=== PATIENT | male | born 1950 | race Hispanic/Latino ===

== ENCOUNTER → 2017-10-10 | Day surgery (SDC) | payer BC, MEDICARE ==
[2017-10-07 17:31] LABS: BASOPHILS # (AUTO) 0.1 (0.0-0.1); EOSINOPHILS # (AUTO) 0.4 (0.0-0.4); EOSINOPHILS % 3.1 % (0.0-6.0); HEMATOCRIT 44.9 % (38.2-49.6); LYMPHOCYTES # (AUTO) 3.8 (1.0-3.2); MEAN CORPUSCULAR HGB CONC 33.4 g/dL (31-35); MEAN CORPUSCULAR VOLUME 83.9 fL (81-99); MONOCYTES # (AUTO) 0.8 (0.2-0.8); NEUTROPHILS # (AUTO) 6.4 (2.1-6.9); NEUTROPHILS % 55.2 % (38.7-80.0); PLATELET COUNT 245 x10e3/uL (140-360); RED BLOOD COUNT 5.35 x10e6/uL (4.3-5.7); RED CELL DISTRIBUTION WIDTH 13.9 % (11.7-14.4)
[2017-10-07 17:44] LABS: BLOOD UREA NITROGEN 18 mg/dL (7-26); BUN/CREATININE RATIO 18 (6-25); CALCIUM 9.9 mg/dL (8.4-10.2); CARBON DIOXIDE 22 mmol/L (22-29); CHLORIDE 106 mmol/L (98-107); CREATININE, SERUM 1.01 mg/dL (0.72-1.25); EST GLOMERULAR FILTRATION RATE > 60 ML/MIN (60-); GLUCOSE 232 mg/dL (74-118); SODIUM 138 mmol/L (136-145)
--- NOTE | 2017-10-07 17:55 | Diagnostic Imaging Report ---
PROCEDURE: Frontal and lateral views of the chest. COMPARISON: Chest x-ray 07/25/2017. INDICATIONS: PRE-OP FINDINGS: Lines/tubes: None. Lungs: The lungs are well inflated and clear. Mild left lateral basilar atelectasis. There is no evidence of pneumonia or pulmonary edema. Pleura: There is no pleural effusion or pneumothorax. Heart and mediastinum: The heart and the mediastinum are normal. Bones: No acute bony abnormality. Degenerative changes in the thoracic spine. Surgical clips in the upper abdomen. IMPRESSION: No acute cardiopulmonary disease. Dictated by: Rashawn Cali M.D. on 10/07/2017 at 18:04 Electronically approved by: Rashawn Cali M.D. on 10/07/2017 at 18:04
[~2017-10-10] MED LIST: ASPIR 8181 MG PO; ATORVASTATIN CA20 MG PO; ATORVASTATIN CA40 MG PO; CELEBREX100 MG PO; CLOPIDOGREL75 MG PO; FENTANYL CITRATE/PF 100MCG/2 ML INJ ONE; JANUVIA100 MG PO; KRILL OIL500 MG; LIDOCAINE HCL 2% LOCAL INJ 5 ML SDV VIAL INJ ONE; LOSARTAN POTASS25 MG PO; METFORMIN HCL500 M1 PO; MIDAZOLAM HCL 2 MG/2 ML VIAL ONE; NORCO 5-325 TA1 EACH PO; NORVASC10 MG PO; OMEPRAZOLE20 M1 PO; PANTOPRAZOLE SO40 MG PO; PROPOFOL IV EMULSION 10 MG/ML 20 ML VIAL ONE; TOPROL XL100 MG PO; WELCHOL625 MG PO; XANAX0.25 MG PO
== END | disposition home or self-care (01) ==
LOC: OR 08:40
PROVIDERS: ATTEND Surgery
DX: K21.0 Gastro-esophageal reflux disease with esophagitis (principal); D12.0 Benign neoplasm of cecum; K29.70 Gastritis, unspecified, without bleeding; I25.10 Atherosclerotic heart disease of native coronary artery without angina pectoris; I10 Essential (primary) hypertension; M06.9 Rheumatoid arthritis, unspecified; I25.2 Old myocardial infarction; E11.9 Type 2 diabetes mellitus without complications; Z01.810 Encounter for preprocedural cardiovascular examination; F17.210 Nicotine dependence, cigarettes, uncomplicated; Z01.812 Encounter for preprocedural laboratory examination; Z01.818 Encounter for other preprocedural examination; Z79.02 Long term (current) use of antithrombotics/antiplatelets; Z79.82 Long term (current) use of aspirin
CPT/HCPCS: 36415 ×2; 43235; 45384; 71020; 80048; 82948; 85025; 88305; 93005; J2001; J2250; 71046

== ENCOUNTER → 2018-11-11 | Day surgery (SDC) | payer BC, MEDICARE ==
[2018-11-10 12:06] LABS: BASOPHILS # (AUTO) 0.1 (0.0-0.1); BASOPHILS % 0.6 % (0.0-1.0); EOSINOPHILS # (AUTO) 0.2 (0.0-0.4); EOSINOPHILS % 0.8 % (0.0-6.0); HEMATOCRIT 46.4 % (38.2-49.6); HEMOGLOBIN 15.8 g/dL (14.0-18.0); LYMPHOCYTES # (AUTO) 4.3 (1.0-3.2); LYMPHOCYTES % 23.7 % (18.0-39.1); MEAN CORPUSCULAR HEMOGLOBIN 28.1 pg (28-32); MEAN CORPUSCULAR HGB CONC 34.1 g/dL (31-35); MEAN CORPUSCULAR VOLUME 82.4 fL (81-99); MONOCYTES # (AUTO) 1.1 (0.2-0.8); MONOCYTES % 6.3 % (4.4-11.3); NEUTROPHILS # (AUTO) 12.2 (2.1-6.9); PLATELET COUNT 263 x10e3/uL (140-360); RED BLOOD COUNT 5.63 x10e6/uL (4.3-5.7); RED CELL DISTRIBUTION WIDTH 14.2 % (11.7-14.4)
[2018-11-10 12:29] LABS: INR 0.92; PROTHROMBIN TIME 13.2 seconds (11.9-14.5)
[2018-11-10 12:30] LABS: PARTIAL THROMBOPLASTIN TIME 23.9 seconds (23.8-35.5)
[2018-11-10 12:38] LABS: ALANINE AMINOTRANSFERASE 32 IU/L (0-55); ALBUMIN 4.1 g/dL (3.5-5.0); ALBUMIN/GLOBULIN RATIO 1.4 (0.8-2.0); ALKALINE PHOSPHATASE 107 IU/L (40-150); ANION GAP 11.1 mmol/L (8-16); BLOOD UREA NITROGEN 18 mg/dL (7-26); BUN/CREATININE RATIO 18 (6-25); CALCIUM 11.1 mg/dL (8.4-10.2); CARBON DIOXIDE 26 mmol/L (22-29); CHLORIDE 104 mmol/L (98-107); CHOL/HDL RATIO 3.7 (3.9-4.7); CHOLESTEROL 156 MD/DL (0-199); EST GLOMERULAR FILTRATION RATE > 60 ML/MIN (60-); GLUCOSE 162 mg/dL (74-118); HDL CHOLESTEROL 42 MG/DL (40-60); LDL CHOLESTEROL 81 MG/DL (60-130); POTASSIUM 4.1 mmol/L (3.5-5.1); SODIUM 137 mmol/L (136-145); TRIGLYCERIDES 163 MG/DL (0-149)
[~2018-11-11] VITALS: Ht 170.2 cm; Wt 79.4 kg
[2018-11-11] VITALS (9 sets, daily range): BP systolic 114–138; BP diastolic 66–82
[~2018-11-11] MED LIST changes: +ASPIRIN 325 MG TAB ONE; +CEFDINIR300 MG PO; +CLOPIDOGREL BISULFATE 75 MG TAB ONE; +HEPARIN SOD/SOD CHLORIDE 2,000 ML ONE; +HYDROXYCHLOROQ200 MG PO; +IOPAMIDOL 300MG/ML 100 ML INFUS..BTL IV ONE; +JARDIANCE PO; +KETOROLAC TROME10 MG PO; -KRILL OIL500 MG; +KRILL OIL500 MG PO; +LIDOCAINE HCL 1% LOCAL INJ 20 ML VIAL ONE; -LIDOCAINE HCL 2% LOCAL INJ 5 ML SDV VIAL INJ ONE; +METHYLPREDNISOLONE SOD SUCC 125 MG/2ML VIAL ONE; +NORCO 10-325 T1 EACH PO; +PRAVASTATIN SOD40 MG PO; -PROPOFOL IV EMULSION 10 MG/ML 20 ML VIAL ONE; +SODIUM CHLORIDE 0.9% 1000ML 1,000 ML ONE; +ZOFRAN ODT4 MG SL
--- NOTE | 2018-11-11 14:50 | NUR ---
Received report from Fartun VARELA. Reviewed medications given, orders and procedural events. Patient laying in stretcher with right leg straight. Stretcher in low and locked position with siderails elevated x2. Call light within reach. IV to left hand appears to be without signs or symptoms of infiltration at this time. Patient is awake,alert, and orientedx3. Respirations even and unlabored on room air. Dressing to right groin is clean,dry, and intact. Right groin is soft upon palpation. No distress noted at this time.
--- NOTE | 2018-11-11 15:28 | NUR ---
Reviewed discharge instructions with patient and at bedside. Reviewed discharge medication reconciliation, activity restrictions, dressing care and follow up appointments. Reviewed signs and symptoms to look for: when to call the doctor and when to call 911. Closure Device brochure provided. Patient and verbalized understanding and had no further questions at this time. Patient to have bedrest for 3 hours to end at 1600. will monitor.
--- NOTE | 2018-11-11 16:00 | NUR ---
At 1557, bed rest completed. Patient assisted to get dressed. Rupa Rn discontinued IV to left hand and placed dressing per unit protocol. Rupa RN stated dressing to right groin was clean,dry, and intact. 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 Rupa RN stated patient did not appear to be in signs of acute distress a this time.
--- NOTE | 2018-11-11 17:18 | Operative Report ---
DATE OF PROCEDURE: 11/11/2018 SURGEON: Mook Boyer MD PROCEDURE INDICATION: Life-limiting claudication and abnormal Doppler ultrasound concerning for significant peripheral vascular disease/Alport disease. PROCEDURES PERFORMED: 1. Abdominal aortogram. 2. Selective lower extremity angiography, bilateral. 3. Third-order catheter placement from right common femoral artery to left common femoral artery. 4. Right common femoral artery 6-Togolese Angio-Seal closure. PROCEDURE COMPLICATIONS: None. ESTIMATED BLOOD LOSS: Less than 15 mL. PROCEDURE SUMMARY: After consent was obtained, the patient was prepped and draped in a sterile fashion. Right femoral site was locally infiltrated with 2% lidocaine. With micropuncture kit, access was obtained to the right common femoral artery and a 6-Togolese sheath was placed. All catheters were railed to the respective positions over a leading wire. An Omniflush catheter was positioned in the distal descending abdominal aorta and angiography revealed patent renal arteries and luminal irregularities throughout the infrarenal abdominal aorta and iliac vessels bilaterally. The common femoral vessels also have luminal irregularities. The profunda femoris, SFA, popliteal arteries all have less than 30% stenosis and there is three-vessel runoff to each of bilateral lower extremities via AT, posterior tibial, peroneal arteries. This with selective angiography performed with digital subtraction with catheter positioned in the left femoral artery and in the right common femoral artery. Of note slow flow (UMBERTO- 2 flow) was observed concerning for possibly small vessel disease. CONCLUSION: No evidence of hemodynamically significant stenosis in the above ankle arterial vessels of the lower extremities with three-vessel runoff, however, was slow flow concerning for small vessel disease. RECOMMENDATIONS: 1. Stop smoking. 2. Continue statin at highest tolerated potency. 3. Continue rest of cardiovascular medication. 4. As outpatient consider evaluation for spinal stenosis. Mook Boyer MD AFV/MODL /[id number] MTDNic
== END | disposition home or self-care (01) ==
LOC: CATH LAB 07:47
PROVIDERS: ATTEND Internal Medicine Cardiovascular Disease
DX: I70.213 Atherosclerosis of native arteries of extremities with intermittent claudication, bilateral legs (principal); I25.119 Atherosclerotic heart disease of native coronary artery with unspecified angina pectoris; I25.83 Coronary atherosclerosis due to lipid rich plaque; E78.5 Hyperlipidemia, unspecified; I11.9 Hypertensive heart disease without heart failure; E11.9 Type 2 diabetes mellitus without complications; R42 Dizziness and giddiness; Z72.0 Tobacco use; Z91.041 Radiographic dye allergy status; Z01.810 Encounter for preprocedural cardiovascular examination; Z01.812 Encounter for preprocedural laboratory examination; Z79.02 Long term (current) use of antithrombotics/antiplatelets; Z79.84 Long term (current) use of oral hypoglycemic drugs; Z79.82 Long term (current) use of aspirin; Z95.5 Presence of coronary angioplasty implant and graft; Z82.49 Family history of ischemic heart disease and other diseases of the circulatory system
CPT/HCPCS: 36246; 36415; 75625; 75716; 80053; 80061; 83036; 85025; 85610; 85730; 93005; C1769 ×2; J2001; J2250; J2930; J7030; Q9967; 36247

== ENCOUNTER → 2021-03-09 | Day surgery (SDC) | payer BC, MEDICARE ==
[2021-03-07 15:46] LABS: BASOPHILS # (AUTO) 0.1 (0.0-0.1); BASOPHILS % 1.2 % (0.0-1.0); EOSINOPHILS # (AUTO) 0.4 (0.0-0.4); EOSINOPHILS % 3.2 % (0.0-6.0); HEMATOCRIT 48.1 % (38.2-49.6); HEMOGLOBIN 15.5 g/dL (14.0-18.0); LYMPHOCYTES # (AUTO) 4.2 (1.0-3.2); LYMPHOCYTES % 37.8 % (18.0-39.1); MEAN CORPUSCULAR HEMOGLOBIN 27.6 pg (28-32); MEAN CORPUSCULAR HGB CONC 32.2 g/dL (31-35); MEAN CORPUSCULAR VOLUME 85.6 fL (81-99); MONOCYTES # (AUTO) 0.7 (0.2-0.8); MONOCYTES % 6.4 % (4.4-11.3); NEUTROPHILS # (AUTO) 5.6 (2.1-6.9); NEUTROPHILS % 50.4 % (38.7-80.0); PLATELET COUNT 252 x10e3/uL (140-360); RED BLOOD COUNT 5.62 x10e6/uL (4.3-5.7); RED CELL DISTRIBUTION WIDTH 14.6 % (11.7-14.4)
[2021-03-07 16:10] LABS: ALBUMIN 3.9 g/dL (3.5-5.0); ALBUMIN/GLOBULIN RATIO 1.3 (0.8-2.0); ANION GAP 12.4 mmol/L (8-16); CALCIUM 9.6 mg/dL (8.4-10.2); CREATININE, SERUM 1.17 mg/dL (0.72-1.25); POTASSIUM 4.4 mmol/L (3.5-5.1)
[~2021-03-09] MED LIST changes: -ASPIRIN 325 MG TAB ONE; -CLOPIDOGREL BISULFATE 75 MG TAB ONE; +CYMBALTA20 MG PO; -HEPARIN SOD/SOD CHLORIDE 2,000 ML ONE; -IOPAMIDOL 300MG/ML 100 ML INFUS..BTL IV ONE; -LIDOCAINE HCL 1% LOCAL INJ 20 ML VIAL ONE; -METHYLPREDNISOLONE SOD SUCC 125 MG/2ML VIAL ONE; +POVIDONE IODINE 0.05% 0.05 % ML PO ONE; +PROPOFOL IV EMULSION 10 MG/ML 20 ML VIAL ONE; -SODIUM CHLORIDE 0.9% 1000ML 1,000 ML ONE
[2021-03-09 11:00] VITALS: BP 116/72
== END | disposition home or self-care (01) ==
LOC: OR 07:22
PROVIDERS: ATTEND Surgery
DX: K29.30 Chronic superficial gastritis without bleeding (principal); D12.3 Benign neoplasm of transverse colon; K31.89 Other diseases of stomach and duodenum; K21.9 Gastro-esophageal reflux disease without esophagitis; E11.9 Type 2 diabetes mellitus without complications; N20.0 Calculus of kidney; I25.2 Old myocardial infarction; I25.10 Atherosclerotic heart disease of native coronary artery without angina pectoris; I10 Essential (primary) hypertension; F41.9 Anxiety disorder, unspecified; F17.210 Nicotine dependence, cigarettes, uncomplicated; Z91.041 Radiographic dye allergy status; Z01.810 Encounter for preprocedural cardiovascular examination; Z01.812 Encounter for preprocedural laboratory examination; Z01.818 Encounter for other preprocedural examination; Z79.02 Long term (current) use of antithrombotics/antiplatelets; Z79.82 Long term (current) use of aspirin; Z79.84 Long term (current) use of oral hypoglycemic drugs; Z86.73 Personal history of transient ischemic attack (TIA), and cerebral infarction without residual deficits; Z95.5 Presence of coronary angioplasty implant and graft
CPT/HCPCS: 36415 ×2; 43239; 45385; 71046; 80053; 82948; 85025; 88305; 88312; 93005; J2250; J2704; J3010; 45378

== ENCOUNTER 2022-12-23 10:17 | Emergency (ER) | payer BC, MEDICARE ==
[~2022-12-23] VITALS: Ht 170.2 cm; Wt 79.4 kg
[~2022-12-23 10:17] MED LIST changes: -FENTANYL CITRATE/PF 100MCG/2 ML INJ ONE; -MIDAZOLAM HCL 2 MG/2 ML VIAL ONE; -POVIDONE IODINE 0.05% 0.05 % ML PO ONE; -PROPOFOL IV EMULSION 10 MG/ML 20 ML VIAL ONE
[2022-12-23] MEDS ORDERED: ONDANSETRON HCL INJ 2MG/ML 2ML 2 MG/ML VIAL IV STA (10:37)
[2022-12-23] MEDS ORDERED: Morphine 2mg Syringe 2 MG/ML SYR IV ONE (10:45)
[2022-12-23] MEDS ORDERED: SODIUM CHLORIDE 0.9% 1000ML 1,000 ML IV ONE (10:45)
[2022-12-23 10:52] LABS: BASOPHILS # (AUTO) 0.1 (0.0-0.1); BASOPHILS % 0.7 % (0.0-1.0); EOSINOPHILS # (AUTO) 0.2 (0.0-0.4); EOSINOPHILS % 1.8 % (0.0-6.0); HEMATOCRIT 46.9 % (38.2-49.6); HEMOGLOBIN 15.6 g/dL (14.0-18.0); LYMPHOCYTES # (AUTO) 3.6 (1.0-3.2); LYMPHOCYTES % 27.7 % (18.0-39.1); MEAN CORPUSCULAR HEMOGLOBIN 27.8 pg (28-32); MEAN CORPUSCULAR HGB CONC 33.3 g/dL (31-35); MEAN CORPUSCULAR VOLUME 83.6 fL (81-99); MONOCYTES # (AUTO) 0.8 (0.2-0.8); MONOCYTES % 6.1 % (4.4-11.3); NEUTROPHILS # (AUTO) 8.2 (2.1-6.9); NEUTROPHILS % 62.9 % (38.7-80.0); PLATELET COUNT 248 x10e3/uL (140-360); RED BLOOD COUNT 5.61 x10e6/uL (4.3-5.7); RED CELL DISTRIBUTION WIDTH 15.4 % (11.7-14.4)
[2022-12-23 11:12] LABS: ALBUMIN 3.7 g/dL (3.5-5.0); ALBUMIN/GLOBULIN RATIO 1.2 (0.8-2.0); ANION GAP 15.5 mmol/L (8-16); CALCIUM 9.1 mg/dL (8.4-10.2); CREATININE, SERUM 0.87 mg/dL (0.72-1.25); POTASSIUM 3.5 mmol/L (3.5-5.1)
[2022-12-23 13:10] LABS: CLARITY,URINE CLEAR (CLEAR); COLOR,URINE ORANGE (YELLOW)
[2022-12-23 13:17] LABS: BACTERIA,URINE FEW /HPF; EPITHELIAL CELLS,URINE FEW /LPF; KETONES,URINE TRACE (NEGATIVE); LEUKOCYTE ESTERASE ,URINE NEGATIVE (NEGATIVE); NITRITE,URINE POSITIVE (NEGATIVE); PROTEIN,URINE DIPSTICK 1+ (NEGATIVE); RBC,URINE 0-5 /HPF (0-5); URINE UROBILINOGEN 1 mg/dL (0.2 - 1)
[2022-12-23] MEDS ORDERED: CEPHALEXIN500 MG PO (13:31)
[2022-12-23] MEDS ORDERED: ONDANSETRON ODT4 MG PO (13:31)
== END 2022-12-23 13:40 | disposition home or self-care (01) ==
LOC: ER 10:26
DX: R19.7 Diarrhea, unspecified (principal); N39.0 Urinary tract infection, site not specified; R10.84 Generalized abdominal pain; Z20.822 Contact with and (suspected) exposure to COVID-19
CPT/HCPCS: 36415; 74176; 80053; 81001; 83690; 85025; 99284; J2270; J2405; J7030; U0002

== ENCOUNTER 2024-06-12 05:52 | Emergency (ER) | payer MEDICARE ==
[~2024-06-12] VITALS: Ht 170.2 cm; Wt 79.4 kg
[~2024-06-12 05:52] MED LIST changes: +CEPHALEXIN500 MG PO; +ONDANSETRON ODT4 MG PO
[2024-06-12 06:00] VITALS: PULSE 65; RESP 16; TEMP 98; O2SAT 98
== END 2024-06-12 06:40 | disposition home or self-care (01) ==
LOC: ER 06:19
DX: F41.9 Anxiety disorder, unspecified (principal); R51.9 Headache, unspecified; E11.65 Type 2 diabetes mellitus with hyperglycemia; I10 Essential (primary) hypertension; I25.10 Atherosclerotic heart disease of native coronary artery without angina pectoris; E78.5 Hyperlipidemia, unspecified; I25.2 Old myocardial infarction; Z95.5 Presence of coronary angioplasty implant and graft; Z86.73 Personal history of transient ischemic attack (TIA), and cerebral infarction without residual deficits; Z87.442 Personal history of urinary calculi; F17.210 Nicotine dependence, cigarettes, uncomplicated
CPT/HCPCS: 36415; 82948; 93005; 99283

== ENCOUNTER 2024-10-27 07:16 | Emergency (ER) | payer MEDICARE ==
[~2024-10-27] VITALS: Ht 170.2 cm; Wt 79.4 kg
[2024-10-27 07:24] VITALS: TEMP 98.1
[2024-10-27 08:45] VITALS: PULSE 81; RESP 16; O2SAT 97
== END 2024-10-27 09:04 | disposition home or self-care (01) ==
LOC: ER 07:25
DX: S93.492A Sprain of other ligament of left ankle, initial encounter (principal); X50.1XXA Overexertion from prolonged static or awkward postures, initial encounter; Y92.89 Other specified places as the place of occurrence of the external cause; I10 Essential (primary) hypertension; E11.9 Type 2 diabetes mellitus without complications; E78.5 Hyperlipidemia, unspecified; I25.2 Old myocardial infarction; Z95.5 Presence of coronary angioplasty implant and graft; Z86.73 Personal history of transient ischemic attack (TIA), and cerebral infarction without residual deficits; Z87.442 Personal history of urinary calculi
CPT/HCPCS: 99283

== ENCOUNTER → 2025-04-21 | Day surgery (SDC) | payer MEDICARE ==
[2025-04-19 13:49] LABS: BASOPHILS % 1.0 % (0.0-1.0); EOSINOPHILS % 3.2 % (0.0-6.0); LYMPHOCYTES % 27.2 % (18.0-39.1); MONOCYTES % 6.3 % (4.4-11.3); NEUTROPHILS % 61.8 % (38.7-80.0); RED CELL DISTRIBUTION WIDTH 14.6 % (11.7-14.4)
[2025-04-19 14:11] LABS: EST GLOMERULAR FILTRATION RATE 68.0 ML/MIN (>=60)
[~2025-04-21] MED LIST changes: +EPHEDRINE SULFATE INJ 50 MG/ML VIAL ONE; +LACTATED RINGER'S 1,000 ML ONE; +LANTUS 3ML100 UNITS/ SC; +PROPOFOL IV EMULSION 0 ML IV ONE; +PROPOFOL IV EMULSION 50 ML IV ONE; +SODIUM CHLORIDE 0.9% 100 ML ONE
[2025-04-21 09:43] VITALS: TEMP 98.1
[2025-04-21 10:10] VITALS: BP 121/67; PULSE 56; RESP 16; O2SAT 98
== END | disposition home or self-care (01) ==
LOC: OR 05:56
PROVIDERS: ATTEND Surgery
DX: K31.A11 Gastric intestinal metaplasia without dysplasia, involving the antrum (principal); K29.50 Unspecified chronic gastritis without bleeding; I10 Essential (primary) hypertension; I25.10 Atherosclerotic heart disease of native coronary artery without angina pectoris; I25.2 Old myocardial infarction; E78.5 Hyperlipidemia, unspecified; E11.9 Type 2 diabetes mellitus without complications; K21.9 Gastro-esophageal reflux disease without esophagitis; F17.210 Nicotine dependence, cigarettes, uncomplicated; Z95.5 Presence of coronary angioplasty implant and graft; Z79.82 Long term (current) use of aspirin; Z79.02 Long term (current) use of antithrombotics/antiplatelets; Z79.4 Long term (current) use of insulin; Z79.84 Long term (current) use of oral hypoglycemic drugs; Z90.49 Acquired absence of other specified parts of digestive tract; Z01.810 Encounter for preprocedural cardiovascular examination; Z01.812 Encounter for preprocedural laboratory examination; Z88.8 Allergy status to other drugs, medicaments and biological substances
CPT/HCPCS: 36415 ×2; 43239; 71046; 80048; 82948; 85025; 88305; 88342; 93005; J2704; J7050; J7121